=== PATIENT | female | born 1970 | race Caucasian/White ===

== ENCOUNTER 2017-09-21 15:14 | Emergency (ER) | payer OTHER ==
[2017-09-21 15:25] VITALS: BP 116/59; PULSE 76; RESP 16; TEMP 98.2
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
--- NOTE | 2017-09-21 16:13 | XR ---
EXAMINATION TYPE: XR foot complete LT DATE OF EXAM: 09/21/2017 COMPARISON: NONE HISTORY: Pain TECHNIQUE: Three views are submitted. FINDINGS: The osseous structures are intact. There is no acute fracture or dislocation. Very mild hypertroph ic change and narrowing the first MTP joint. Spurring of the calcaneus noted. IMPRESSION: 1. No acute fracture or dislocation. If symptoms persist, follow-up exam in 7 to 10 days could be ob tained.
== END 2017-09-21 16:44 | disposition home or self-care (01) ==
LOC: EC 15:14
DX: S90.32XA Contusion of left foot, initial encounter (principal); Z91.011 Allergy to milk products; Z91.012 Allergy to eggs; Z91.018 Allergy to other foods; W51.XXXA Accidental striking against or bumped into by another person, initial encounter
CPT/HCPCS: 99283

== ENCOUNTER 2017-10-20 16:57 | Emergency (ER) | payer OTHER ==
[2017-10-20 17:10] VITALS: TEMP 98.3
--- NOTE | 2017-10-20 17:31 | ED ---
General Adult HPI - General Chief complaint: Urogenital Stated complaint: POSS UTI Time Seen by Provider: 10/20/17 17:14 Source: patient, RN notes reviewed, old records reviewed Mode of arrival: ambulatory Limitations: no limitations - History of Present Illness Initial comments: 47-year-old female presents with 4 days of urinary frequency and urgency. She also reports worsening dysuria over this time. Denies fever or chills. She has had some nausea with no vomiting. No upper abdominal pain. No vaginal discharge or bleeding. No change to her bowels. No diarrhea. Patient has no chronic medical problems, not currently on any medication. - Related Data Home Medications Medication Instructions Recorded Confirmed Acetaminophen [Tylenol] 650 mg PO Q6H PRN 10/20/17 10/20/17 Ibuprofen [Motrin Ib] 400 mg PO Q6H PRN 10/20/17 10/20/17 Previous Rx's Medication Instructions Recorded Cephalexin [Keflex] 500 mg PO Q8HR #30 cap 10/20/17 Allergies Allergy/AdvReac Type Severity Reaction Status Date / Time good Allergy Anaphylaxis Verified 10/20/17 17:34 egg Allergy Nausea & Verified 10/20/17 17:34 Vomiting Milk Containing Products Allergy Nausea & Verified 10/20/17 17:34 [Dairy] Vomiting & Diarrhea Poultry Allergy Nausea & Verified 10/20/17 17:34 Vomiting walnut Allergy Anaphylaxis Verified 10/20/17 17:34 mina Allergy Nausea & Uncoded 10/20/17 17:10 Vomiting Review of Systems ROS Statement: Those systems with pertinent positive or pertinent negative responses have been documented in the HPI. ROS Other: All systems not noted in ROS Statement are negative. Past Medical History Past Medical History: No Reported History History of Any Multi-Drug Resistant Organisms: None Reported Past Surgical History: Section, Orthopedic Surgery Additional Past Surgical History / Comment(s): carpal tunnel, trigger finger Past Psychological History: No Psychological Hx Reported Smoking Status: Never smoker Past Alcohol Use History: Occasional Past Drug Use History: None Reported General Exam Limitations: no limitations General appearance: alert, in no apparent distress Head exam: Present: atraumatic, normocephalic Eye exam: Present: normal appearance, PERRL ENT exam: Present: normal exam Neck exam: Present: normal inspection. Absent: tenderness, meningismus Respiratory exam: Present: normal lung sounds bilaterally. Absent: respiratory distress, wheezes Cardiovascular Exam: Present: regular rate, normal rhythm GI/Abdominal exam: Present: soft. Absent: distended, tenderness Extremities exam: Present: normal inspection, normal capillary refill. Absent: pedal edema Neurological exam: Present: alert, oriented X3 Psychiatric exam: Present: normal affect, normal mood Skin exam: Present: warm, dry, intact Course Vital Signs 10/20/17 17:08 Temperature 98.3 F Pulse Rate 84 Respiratory 18 Rate Blood Pressure 105/62 O2 Sat by Pulse 97 Oximetry Medical Decision Making - Medical Decision Making 47-year-old female otherwise healthy presenting with dysuria, urinary frequency and urgency. Urinalysis shows 146 WBCs, and greater than 182 red cells. Patient does have a remote history of kidney stone. CT is obtained, negative for hydronephrosis or hydroureter, no stones seen in the ureters, there is one stone within the right kidney. There is also fat stranding around the bladder consistent with cystitis. This is likely hemorrhagic cystitis. Patient will be started on antibiotics empirically awaiting culture results. - Lab Data Lab Results 10/20/17 Range/Units 17:15 Urine Color Yellow Urine Appearance Cloudy H (Clear) Urine pH 6.0 (5.0-8.0) Ur Specific [place] 1.033 (1.001-1.035) Urine Protein 2+ H (Negative) Urine Glucose (UA) Trace H (Negative) Urine Ketones Trace H (Negative) Urine Blood Large H (Negative) Urine Nitrite Negative (Negative) Urine Bilirubin Negative (Negative) Urine Urobilinogen 3.0 (<2.0) mg/dL Ur Leukocyte Esterase Large H (Negative) Urine RBC >182 H (0-5) /hpf Urine WBC 146 H (0-5) /hpf Urine WBC Clumps Few H (None) /hpf Ur Squamous Epith Cells 18 H (0-4) /hpf Urine Mucus Many H (None) /hpf Disposition Clinical Impression: Urinary tract infection Disposition: HOME SELF-CARE Condition: Good Instructions: Urinary Tract Infection in Women (ED) Prescriptions: Cephalexin [Keflex] 500 mg PO Q8HR #30 cap Is patient prescribed a controlled substance at d/c from ED?: No Referrals: None,Stated [Primary Care Provider] - 1-2 days Candace Thompson MD [REFERRING] - 1-2 days Time of Disposition: 18:49
[2017-10-20 17:35] LABS: Appearance,Urine Cloudy (Clear); Bilirubin,Urine Negative (Negative); Blood,Urine Large (Negative); Color,Urine Yellow; Glucose,Urine (UA) Trace (Negative); Ketones,Urine Trace (Negative); Leukocyte Esterase,Urine Large (Negative); Mucus,Urine Many /hpf; Nitrite,Urine Negative (Negative); Protein,Urine 2+ (Negative); RBC,Urine >182 /hpf (0-5); Specific Gravity,Urine 1.033 (1.001-1.035); Squamous Epithelial Cell,Urine 18 /hpf (0-4); WBC,Urine 146 /hpf (0-5)
--- NOTE | 2017-10-20 18:36 | CT ---
EXAMINATION TYPE: CT abdomen pelvis wo con DATE OF EXAM: 10/20/2017 COMPARISON: None HISTORY: 47-year-old female Right sided pain with hematuria and pain with urination CT DLP: 501.7 mGycm. Automated exposure control for dose reduction was used. TECHNIQUE: Contiguous axial scanning of the abdomen and pelvis without IV contrast. Coronal and sagit jose antonio reconstructions performed. FINDINGS: Heart normal size without pericardial effusion. Lung bases clear without pleural effusion. Noncontrast appearance of the liver, gallbladder, adrenal glands, left kidney, spleen, and pancreas s hows no gross abnormal. Punctate 2 mm calculi within the right kidney. No hydronephrosis. No suspicious calcifications seen along the course of either ureter. No dilated small bowel, free fluid, or free air. The appendix cannot be discretely visualized. No secondary findings of acute appendicitis in the righ t lower quadrant. Moderate stool burden. No pericolonic inflammatory change. No mesenteric or retroperitoneal lymphadenopathy. Bladder not distended. There may be some mild fat stranding around the bladder. Retroverted uterus. M ultiple pelvic phleboliths on the left. Both ovaries are visualized. No abnormal fluid collection the pelvis or pelvic lymphadenopathy. Bones: No osseous destructive process. IMPRESSION: 1. Punctate 2 mm calculi within the right kidney. No hydronephrosis or suspicious calculus seen simi g either ureter. 2. There may be some mild fat stranding around the bladder. Correlate to exclude cystitis. 3. Moderate stool burden.
[2017-10-20] MEDS ORDERED: IBUPROFEN 600 MG TAB PO STA (18:53)
[2017-10-20 19:20] VITALS: BP 136/78; PULSE 68; RESP 16
[2017-10-20] MEDS ORDERED: CEPHALEXIN 500 MG CAP PO STA (19:24)
== END 2017-10-20 19:28 | disposition home or self-care (01) ==
LOC: EC 16:57
DX: N39.0 Urinary tract infection, site not specified (principal); Z87.442 Personal history of urinary calculi; Z91.011 Allergy to milk products; Z91.012 Allergy to eggs; Z91.018 Allergy to other foods; Z91.09 Other allergy status, other than to drugs and biological substances
CPT/HCPCS: 74176; 81001; 87077; 87086; 87186; 99284

== ENCOUNTER 2017-11-23 21:55 | Emergency (ER) | payer OTHER ==
[2017-11-23 22:00] VITALS: BP 126/77; PULSE 80; RESP 18; TEMP 98.5
--- NOTE | 2017-11-23 22:48 | ED ---
General Adult HPI - General Chief complaint: Skin/Abscess/Foreign Body Stated complaint: Rash Time Seen by Provider: 11/23/17 22:07 Source: patient, RN notes reviewed, old records reviewed Mode of arrival: ambulatory Limitations: no limitations - History of Present Illness Initial comments: 47 year old female presents with rash over L foot and ankle, that has spread up her leg, and has other areas over L axilla. Patietn reports she was exposed to [place]. Patient reports this rash has been there for one week after walking through back yard. She reports she has used calamine lotion with some relief. - Related Data Home Medications Medication Instructions Recorded Confirmed Acetaminophen [Tylenol] 650 mg PO Q6H PRN 10/20/17 10/20/17 Ibuprofen [Motrin Ib] 400 mg PO Q6H PRN 10/20/17 10/20/17 Previous Rx's Medication Instructions Recorded Cephalexin [Keflex] 500 mg PO Q8HR #30 cap 10/20/17 Ibuprofen [Motrin] 600 mg PO Q8HR PRN #24 tab 10/20/17 Permethrin 5% Cream [Elimite] 1 applic TOPICAL ONCE #60 cream..g. 11/23/17 hydrOXYzine HCL [Atarax] 25 mg PO QID PRN #20 tab 11/23/17 predniSONE 10 mg PO DAILY #30 tab 11/23/17 Allergies Allergy/AdvReac Type Severity Reaction Status Date / Time good Allergy Anaphylaxis Verified 10/20/17 17:34 egg Allergy Nausea & Verified 10/20/17 17:34 Vomiting Milk Containing Products Allergy Nausea & Verified 10/20/17 17:34 [Dairy] Vomiting & Diarrhea Poultry Allergy Nausea & Verified 10/20/17 17:34 Vomiting walnut Allergy Anaphylaxis Verified 10/20/17 17:34 mina Allergy Nausea & Uncoded 10/20/17 17:10 Vomiting Review of Systems ROS Statement: Those systems with pertinent positive or pertinent negative responses have been documented in the HPI. ROS Other: All systems not noted in ROS Statement are negative. Past Medical History Past Medical History: No Reported History History of Any Multi-Drug Resistant Organisms: None Reported Past Surgical History: Section, Orthopedic Surgery Additional Past Surgical History / Comment(s): carpal tunnel, trigger finger Past Psychological History: No Psychological Hx Reported Smoking Status: Never smoker Past Alcohol Use History: Occasional Past Drug Use History: Marijuana General Exam - General Exam Comments Initial Comments: This is a 47 year old female, no distress. Limitations: no limitations General appearance: alert, in no apparent distress Head exam: Present: atraumatic, normocephalic, normal inspection Eye exam: Present: normal appearance, PERRL, EOMI. Absent: scleral icterus, conjunctival injection, periorbital swelling ENT exam: Present: normal exam, mucous membranes moist Neck exam: Present: normal inspection. Absent: tenderness, meningismus, lymphadenopathy Respiratory exam: Present: normal lung sounds bilaterally. Absent: respiratory distress, wheezes, rales, rhonchi, stridor Cardiovascular Exam: Present: regular rate, normal rhythm, normal heart sounds. Absent: systolic murmur, diastolic murmur, rubs, gallop, clicks GI/Abdominal exam: Present: soft, normal bowel sounds. Absent: distended, tenderness, guarding, rebound, rigid Extremities exam: Present: normal inspection, full ROM, normal capillary refill , other (erythematous linear rash over left foot, ankle and leg. Rash has dried blisters and papules. ). Absent: tenderness, pedal edema, joint swelling, calf tenderness Back exam: Present: normal inspection Neurological exam: Present: alert, oriented X3, CN II-XII intact Psychiatric exam: Present: normal affect, normal mood Skin exam: Present: warm, dry, intact, normal color, rash (rash over left foot, ankle and axilla. ) Course Vital Signs 11/23/17 21:59 Temperature 98.5 F Pulse Rate 80 Respiratory 18 Rate Blood Pressure 126/77 O2 Sat by Pulse 98 Oximetry Medical Decision Making - Medical Decision Making 47 year old female with L foot ankle and axilla rash. Patient has erythematous linear blisters and papules. Rash appears similliar to [place] rash, but can appear similiar to scabies. Patient at this time has history consistent with [place] exposure. Will treat with PO steroids and steroid cream. Discussed using permethrin cream after steroids if symptoms persist. Patient agrees to treatment plan and will comply. Disposition Clinical Impression: [place] Disposition: HOME SELF-CARE Condition: Good Instructions: [place] (ED) Additional Instructions: Patient advised to follow-up with primary care physician. Return to the emergency department if any alarming signs or symptoms occur. Patient should be treated with permethrin cream if the steroids, Caladryl and Benadryl did not help with the itching. Prescriptions: hydrOXYzine HCL [Atarax] 25 mg PO QID PRN #20 tab PRN Reason: Itching Permethrin 5% Cream [Elimite] 1 applic TOPICAL ONCE #60 cream..g. predniSONE 10 mg PO DAILY #30 tab Is patient prescribed a controlled substance at d/c from ED?: No Referrals: None,Stated [Primary Care Provider] - 1-2 days Tsering Diaz MD [STAFF PHYSICIAN] - 1-2 days Time of Disposition: 22:44
== END 2017-11-23 23:05 | disposition home or self-care (01) ==
LOC: EC 21:55
DX: L23.7 Allergic contact dermatitis due to plants, except food (principal); Z98.890 Other specified postprocedural states; Z91.011 Allergy to milk products; Z91.012 Allergy to eggs; Z91.018 Allergy to other foods
CPT/HCPCS: 99283

== ENCOUNTER 2018-03-10 19:10 | Emergency (ER) | payer OTHER ==
[2018-03-10 19:45] VITALS: RESP 18
--- NOTE | 2018-03-10 20:34 | XR ---
EXAMINATION TYPE: XR lumbar spine 2 or 3V DATE OF EXAM: 03/10/2018 COMPARISON: NONE HISTORY: Low back pain TECHNIQUE: 3 views FINDINGS: Lumbar vertebra have normal spacing and alignment. Posterior elements are intact. Sacroilia c joints appear normal. IMPRESSION: Normal lumbar spine exam.
[2018-03-10] MEDS ORDERED: KETOROLAC 30 MG/ML 1 ML VIAL IM STA (20:59)
[2018-03-10] MEDS ORDERED: DIAZEPAM 5 MG/ML 2 ML INJ IM ONE (21:00)
[2018-03-10] MEDS ORDERED: CYCLOBENZAPRINE 10MG STARTER 3 TAB BTL PO STA (22:12)
[2018-03-10] MEDS ORDERED: ACET/COD 300 MG/30 MG STARTER PACK 6 TAB BTL PO STA (22:12)
--- NOTE | 2018-03-10 22:12 | ED ---
Back Pain HPI - General Chief Complaint: Back Pain/Injury Stated Complaint: lower back pain/fall Time Seen by Provider: 03/10/18 20:47 Source: patient Limitations: no limitations - History of Present Illness Initial Comments: 47-year-old female who denies past medical history presenting today for chief complaint of fall. Patient states that last night around 8 PM she was walking down her son's basement stairs when she slipped falling on her butt sliding down 5 stairs. Patient states that night she took a muscle relaxer that her son had as well as an ibuprofen 800. She states that the pain was worse this morning. Patient denies any loss of bowel bladder control loss sensation lower extremities, muscle weakness of the legs. Patient denies any vaginal numbness, or numbness to treat the legs. Patient states that the pain is worse with any type of movement. Patient is able to ambulate. Patient denies hitting her head , loss of consciousness, or injury to any other extremity. Patient denies abrasion or lacerations. Patient denies chest pain, dizziness, shortness of breath, headache or weakness or any other symptoms prior to falling. She states it was mechanical. Upon arrival patient's bowel signs neck supple limits. Patient appears well but uncomfortable. Vital signs within acceptable limits. - Related Data Home Medications Medication Instructions Recorded Confirmed Acetaminophen [Tylenol] 650 mg PO Q6H PRN 10/20/17 10/20/17 Ibuprofen [Motrin Ib] 400 mg PO Q6H PRN 10/20/17 10/20/17 Previous Rx's Medication Instructions Recorded Cephalexin [Keflex] 500 mg PO Q8HR #30 cap 10/20/17 Ibuprofen [Motrin] 600 mg PO Q8HR PRN #24 tab 10/20/17 Permethrin 5% Cream [Elimite] 1 applic TOPICAL ONCE #60 cream..g. 11/23/17 hydrOXYzine HCL [Atarax] 25 mg PO QID PRN #20 tab 11/23/17 predniSONE 10 mg PO DAILY #30 tab 11/23/17 Acetaminophen with Codeine 1 tab PO Q6H PRN 3 Days #12 tab 03/10/18 [Tylenol w/codeine #3] predniSONE 20 mg PO DAILY 4 Days #4 tab 03/10/18 Allergies Allergy/AdvReac Type Severity Reaction Status Date / Time good Allergy Anaphylaxis Verified 03/10/18 19:44 egg Allergy Nausea & Verified 03/10/18 19:44 Vomiting Milk Containing Products Allergy Nausea & Verified 03/10/18 19:44 [Dairy] Vomiting & Diarrhea Poultry Allergy Nausea & Verified 03/10/18 19:44 Vomiting walnut Allergy Anaphylaxis Verified 03/10/18 19:44 mina Allergy Nausea & Uncoded 03/10/18 19:44 Vomiting Review of Systems ROS Statement: Those systems with pertinent positive or pertinent negative responses have been documented in the HPI. ROS Other: All systems not noted in ROS Statement are negative. Constitutional: Denies: fever, chills Eyes: Denies: eye pain ENT: Denies: ear pain, throat pain, dental pain, hearing loss Respiratory: Denies: cough, dyspnea, wheezes, hemoptysis, stridor Cardiovascular: Denies: chest pain, palpitations Endocrine: Denies: fatigue Gastrointestinal: Denies: abdominal pain, nausea, vomiting, diarrhea, constipation, hematemesis, melena Genitourinary: Denies: urgency, dysuria Musculoskeletal: Reports: back pain, myalgia (Low back muscles). Denies: joint swelling, arthralgia Skin: Denies: rash, lesions Past Medical History Past Medical History: No Reported History History of Any Multi-Drug Resistant Organisms: None Reported Past Surgical History: Section, Orthopedic Surgery Additional Past Surgical History / Comment(s): carpal tunnel, trigger finger Past Psychological History: No Psychological Hx Reported Smoking Status: Never smoker Past Alcohol Use History: Occasional Past Drug Use History: Marijuana General Exam - General Exam Comments Initial Comments: General: The patient is awake and alert, in no distress, and does not appear acutely ill. Eye: Pupils are equal, round and reactive to light, extra-ocular movements are intact. No nystagmus. There is normal conjunctiva bilaterally. No signs of icterus. Ears, nose, mouth and throat: There are moist mucous membranes and no oral lesions. Neck: The neck is supple, there is no tenderness or JVD. Cardiovascular: There is a regular rate and rhythm. No murmur, rub or gallop is appreciated. Respiratory: Lungs are clear to auscultation, respirations are non-labored, breath sounds are equal. No wheezes, stridor, rales, or rhonchi. Gastrointestinal: Soft, non-distended, non-tender abdomen without masses or organomegaly noted. There is no rebound or guarding present. Musculoskeletal: Upon inspection of the lumbar spine there is no ecchymosis, abrasions or lacerations. Patient is tender to the patient midline of the lumbar spine. She also has noted paravertebral muscle tension and spasm. Of the lumbar spine. Patient has 5/5 strength of the lower extremities equally bilaterally. Patient has full sensation of the lower extremities equally bilaterally. There is no saddle numbness. DP pulses equal bilaterally 2+. No evidence of foot drop, clonus fasciculations. Deep tendon reflexes +2/5 of the lower extremities. No pain to palpation of the cervical spine. Neurological: A&O x 3. CN II-XII intact, There are no obvious motor or sensory deficits. Coordination appears grossly intact. Speech is normal. Skin: Skin is warm and dry and no rashes or lesions are noted. Psychiatric: Cooperative, appropriate mood & affect, normal judgment. Limitations: no limitations Course Vital Signs 03/10/18 03/10/18 19:42 22:33 Temperature 98.4 F 98.3 F Pulse Rate 87 98 Respiratory 18 18 Rate Blood Pressure 117/76 138/74 O2 Sat by Pulse 98 99 Oximetry Medical Decision Making - Medical Decision Making Patient given Toradol and Valium for pain and muscle spasm. Patient states that this improved symptoms. Radiographic imaging negative for acute process or fracture. At this time feel patient is stable for discharge for treatment of low back pain with muscle relaxant Flexeril and pain medication Tylenol No. 3. Use the medication as discussed at length the patient who verbalized understanding. Opioids are talking consent form was discussed at length patient verbalized understanding. Case discussed with Dr. Abdalla who agreed impression and plan. I urged patient to follow up with with orthopedic surgery in the next 1-2 days. Patient verbalized understanding. In addition I instructed patient to use ice and heat of the lumbar spine 20 minutes 3 times a day. Patient verbalized understanding of plan. Patient denies questions at this time. Return parameters were discussed at length the patient including signs of cauda equina. Patient states she went to return for any worsening or any other symptoms discussed. At this time feel patient is stable for discharge. Patient discharged in stable condition with right home, son in room. Patient ambulatory upon leaving emergency department. Disposition Clinical Impression: Low back pain, Low back strain, Lower back injury, Fall Disposition: HOME SELF-CARE Condition: Good Instructions: Acute Low Back Pain (ED) Additional Instructions: Please use medication as discussed. Please follow-up with family doctor in the next 2 days, please follow-up with orthopedic surgery as discussed. Please return to emergency room if the symptoms increase or worsen or for any other concerns, loss of bowel bladder control, urine retention, numbness between legs , or muscle weakness. Prescriptions: Acetaminophen with Codeine [Tylenol w/codeine #3] 1 tab PO Q6H PRN 3 Days #12 tab PRN Reason: severe pain predniSONE 20 mg PO DAILY 4 Days #4 tab Is patient prescribed a controlled substance at d/c from ED?: Yes When asked, does pt state using other controlled substances?: No If prescribed controlled substance>3 days was MAPS reviewed?: Prescribed <3 Days If opioid is for acute pain is fill amount 7 days or less?: Yes If Rx opioid, was Start Talking consent form obtained?: Yes Referrals: Ga Barragan MD [Primary Care Provider] - 1-2 days Gordo Dawson MD [STAFF PHYSICIAN] - 1-2 days Time of Disposition: 22:12
[2018-03-10 22:34] VITALS: BP 138/74; PULSE 98; TEMP 98.3
== END 2018-03-10 22:34 | disposition home or self-care (01) ==
LOC: EC 19:10
DX: S39.012A Strain of muscle, fascia and tendon of lower back, initial encounter (principal); Z91.012 Allergy to eggs; Z91.018 Allergy to other foods; Z91.011 Allergy to milk products; W10.9XXA Fall (on) (from) unspecified stairs and steps, initial encounter; Y93.01 Activity, walking, marching and hiking; Y92.008 Other place in unspecified non-institutional (private) residence as the place of occurrence of the external cause
CPT/HCPCS: 72100; 99283; 96372 ×2; J3360; J1885

== ENCOUNTER 2018-05-30 14:35 | Emergency (ER) | payer OTHER ==
[2018-05-30 14:48] VITALS: BP 120/74; PULSE 78; RESP 20; TEMP 98.5
[2018-05-30] MEDS ORDERED: ACETAMINOPHEN TAB 500 MG TAB PO STA (15:32)
[2018-05-30] MEDS ORDERED: CYCLOBENZAPRINE 5 MG TAB PO STA (15:33)
--- NOTE | 2018-05-30 15:36 | ED ---
General Adult HPI - General Chief complaint: Fall Stated complaint: Fall on ice, back pain Source: patient, family, RN notes reviewed Mode of arrival: ambulatory Limitations: no limitations - History of Present Illness Initial comments: Patient is a 47-year-old female who presents the emergency department with her with complaint of slip and fall on the ice that happened at about 6:30 AM today. She reports that she fell onto her bottom and that her tailbone and left lower back hurts. Denies any other injury. Denies head injury, loss of consciousness, neck pain, bowel or bladder incontinence, or saddle anesthesia. She reports taking 600 mg of ibuprofen at 11 AM. Patient denies any recent fever , chills, shortness of breath, chest pain, abdominal pain, nausea or vomiting, numbness or tingling, headaches or visual changes, or any other complaints. - Related Data Home Medications Medication Instructions Recorded Confirmed Acetaminophen [Tylenol] 650 mg PO Q6H PRN 10/20/17 10/20/17 Ibuprofen [Motrin Ib] 400 mg PO Q6H PRN 10/20/17 10/20/17 Previous Rx's Medication Instructions Recorded Cephalexin [Keflex] 500 mg PO Q8HR #30 cap 10/20/17 Ibuprofen [Motrin] 600 mg PO Q8HR PRN #24 tab 10/20/17 Permethrin 5% Cream [Elimite] 1 applic TOPICAL ONCE #60 cream..g. 11/23/17 hydrOXYzine HCL [Atarax] 25 mg PO QID PRN #20 tab 11/23/17 predniSONE 10 mg PO DAILY #30 tab 11/23/17 Acetaminophen with Codeine 1 tab PO Q6H PRN 3 Days #12 tab 03/10/18 [Tylenol w/codeine #3] predniSONE 20 mg PO DAILY 4 Days #4 tab 03/10/18 Allergies Allergy/AdvReac Type Severity Reaction Status Date / Time good Allergy Anaphylaxis Verified 05/30/18 14:48 egg Allergy Nausea & Verified 05/30/18 14:48 Vomiting Milk Containing Products Allergy Nausea & Verified 05/30/18 14:48 [Dairy] Vomiting & Diarrhea Poultry Allergy Nausea & Verified 05/30/18 14:48 Vomiting walnut Allergy Anaphylaxis Verified 05/30/18 14:48 mina Allergy Nausea & Uncoded 05/30/18 14:48 Vomiting Review of Systems ROS Statement: Those systems with pertinent positive or pertinent negative responses have been documented in the HPI. ROS Other: All systems not noted in ROS Statement are negative. Past Medical History Past Medical History: No Reported History History of Any Multi-Drug Resistant Organisms: None Reported Past Surgical History: Section, Orthopedic Surgery Additional Past Surgical History / Comment(s): carpal tunnel, trigger finger Past Psychological History: No Psychological Hx Reported Smoking Status: Never smoker Past Alcohol Use History: Occasional Past Drug Use History: Marijuana General Exam Limitations: no limitations General appearance: alert, in no apparent distress Head exam: Present: atraumatic, normocephalic Eye exam: Present: normal appearance Respiratory exam: Present: normal lung sounds bilaterally. Absent: wheezes, rales, rhonchi Cardiovascular Exam: Present: regular rate, normal rhythm Back exam: Present: normal inspection, tenderness (Left sided lumbar area tenderness. No midline tenderness.) Neurological exam: Present: alert, oriented X3 Skin exam: Present: warm, dry Course Vital Signs 05/30/18 14:46 Temperature 98.5 F Pulse Rate 78 Respiratory 20 Rate Blood Pressure 120/74 O2 Sat by Pulse 99 Oximetry Medical Decision Making - Medical Decision Making Patient given Tylenol and Flexeril here. X-ray of the lumbar spine reveals mild disc space narrowing posteriorly at L5-S1, but is otherwise negative. Sacrum and coccyx x-ray is negative. Case discussed in detail with attending physician Dr. Marin. Disposition Clinical Impression: Fall Disposition: HOME SELF-CARE Condition: Good Instructions (If sedation given, give patient instructions): Contusion in Adults (ED) Additional Instructions: Follow-up with your PCP in 1 to 2 days. Use [id number] pain medicine as needed. Return to the emergency department if your symptoms worsen or other concerns. Is patient prescribed a controlled substance at d/c from ED?: No Referrals: Ga Barragan MD [Primary Care Provider] - 1-2 days Time of Disposition: 16:54
--- NOTE | 2018-05-30 15:59 | XR ---
EXAMINATION TYPE: XR sacrum coccyx DATE OF EXAM: 05/30/2018 COMPARISON: None HISTORY: Pain, fall TECHNIQUE: Three-view sacrum and coccyx. FINDINGS: No acute fractures are evident. Sacroiliac joints appear normal as visualized. Normal bowel gas present. IMPRESSION: 1. No acute osseous abnormality cervical spine coccyx.
--- NOTE | 2018-05-30 16:00 | XR ---
EXAMINATION TYPE: XR lumbar spine 2 or 3V DATE OF EXAM: 05/30/2018 COMPARISON: 03/10/2018 HISTORY: Fall on ice, pain TECHNIQUE: Three-view lumbar spine FINDINGS: Some posterior disc space narrowing at L5-S1 is present. There 5 lumbar-type vertebral bodi es. The pedicles are intact. Disc heights are otherwise preserved. Vertebral body heights are preserv ed. Exam is stable. IMPRESSION: 1. Mild disc space narrowing posteriorly at L5-S1. 2. Lumbar spine is otherwise unremarkable.
== END 2018-05-30 17:06 | disposition home or self-care (01) ==
LOC: EC 14:35
DX: M48.07 Spinal stenosis, lumbosacral region (principal); Z91.018 Allergy to other foods; Z91.012 Allergy to eggs; Z91.011 Allergy to milk products; W00.0XXA Fall on same level due to ice and snow, initial encounter; Y92.009 Unspecified place in unspecified non-institutional (private) residence as the place of occurrence of the external cause
CPT/HCPCS: 72100; 72220; 99283

== ENCOUNTER → 2018-06-30 | Outpatient (CLI) | payer OTHER ==
[2018-06-30 16:01] LABS: Anion Gap 4.3 mmol/L (4.00-12.00); Carbon Dioxide 27.7 mmol/L (21.6-31.8); Potassium 4.4 mmol/L (3.5-5.5)
== END | disposition home or self-care (01) ==
LOC: LABWHC1 09:18
PROVIDERS: ATTEND Nurse Practitioner Family
DX: Z13.220 Encounter for screening for lipoid disorders (principal); Z13.1 Encounter for screening for diabetes mellitus
CPT/HCPCS: 36415; 80048; 80061

== ENCOUNTER 2018-08-06 16:13 | Emergency (ER) | payer OTHER ==
[2018-08-06 16:40] VITALS: TEMP 98.1
[2018-08-06] MEDS ORDERED: MECLIZINE 12.5 MG TAB PO STA (17:28)
[2018-08-06] MEDS ORDERED: diphenhydrAMINE 50 MG/ML 1 ML VIAL IVP STA (17:28)
[2018-08-06] MEDS ORDERED: SODIUM CHLORIDE 0.9% 1,000 ML IV STA ×2 (17:28)
[2018-08-06] MEDS ORDERED: METOCLOPRAMIDE 5 MG/ML 2 ML VIAL IVP STA (17:30)
--- NOTE | 2018-08-06 17:53 | ED ---
Syncope HPI - General Chief Complaint: Dizziness Stated Complaint: Dizzy Time Seen by Provider: 08/06/18 16:49 Source: patient, RN notes reviewed, old records reviewed Mode of arrival: ambulatory Limitations: no limitations - History of Present Illness Initial Comments: 48-year-old female presents to emergency room complaints of dizziness. She feels like the room spinning. Symptoms started over the weekend. Patient states that she's had a history of vertigo the past. Last episode was a few years ago. Patient denies any chest pain or shortness of breath. She denies a significant headache. She is complaining some sinus congestion tenderness. Patient states that she's had some vomiting episodes related to this. Patient denies any recent fever, chills, shortness of breath, chest pain, back pain, abdominal pain, nausea vomiting, numbness or tingling, dysuria or hematuria, constipation or diarrhea, headaches or visual changes, or any other current symptoms - Related Data Home Medications Medication Instructions Recorded Confirmed Meclizine [Antivert] 25 mg PO DAILY 08/06/18 08/06/18 Previous Rx's Medication Instructions Recorded Meclizine HCl 25 mg PO TID #20 tablet 08/06/18 Metoclopramide HCl [Reglan] 10 mg PO TID #10 tablet 08/06/18 methylPREDNISolone Dose Pack 4 mg PO DIRECTED #21 package 08/06/18 [Medrol Dose Pack] Allergies Allergy/AdvReac Type Severity Reaction Status Date / Time good Allergy Anaphylaxis Verified 08/06/18 17:54 egg Allergy Nausea & Verified 08/06/18 17:54 Vomiting Milk Containing Products Allergy Nausea & Verified 08/06/18 17:54 [Dairy] Vomiting & Diarrhea Poultry Allergy Nausea & Verified 08/06/18 17:54 Vomiting walnut Allergy Anaphylaxis Verified 08/06/18 17:54 mina Allergy Nausea & Uncoded 08/06/18 16:40 Vomiting Review of Systems ROS Statement: Those systems with pertinent positive or pertinent negative responses have been documented in the HPI. ROS Other: All systems not noted in ROS Statement are negative. Past Medical History Past Medical History: No Reported History Additional Past Medical History / Comment(s): vertigo History of Any Multi-Drug Resistant Organisms: None Reported Past Surgical History: Section, Orthopedic Surgery Additional Past Surgical History / Comment(s): carpal tunnel, trigger finger Past Psychological History: No Psychological Hx Reported Smoking Status: Never smoker Past Alcohol Use History: Occasional Past Drug Use History: Marijuana General Exam - General Exam Comments Initial Comments: 48-year-old female presents emergency department today complaining of dizziness. Alert and oriented 3. No distress. Limitations: no limitations General appearance: alert, in no apparent distress Head exam: Present: atraumatic, normocephalic, normal inspection Eye exam: Present: normal appearance, PERRL, EOMI, nystagmus (Patient has nystagmus on left lateral gaze.). Absent: scleral icterus, conjunctival injecti on, periorbital swelling ENT exam: Present: normal exam, mucous membranes moist Neck exam: Present: normal inspection. Absent: tenderness, meningismus, lymphadenopathy Respiratory exam: Present: normal lung sounds bilaterally. Absent: respiratory distress, wheezes, rales, rhonchi, stridor Cardiovascular Exam: Present: regular rate, normal rhythm, normal heart sounds. Absent: systolic murmur, diastolic murmur, rubs, gallop, clicks GI/Abdominal exam: Present: soft Extremities exam: Present: normal inspection, full ROM, normal capillary refill. Absent: tenderness, pedal edema, joint swelling, calf tenderness Back exam: Present: normal inspection Neurological exam: Present: alert, oriented X3, CN II-XII intact Psychiatric exam: Present: normal affect, normal mood Skin exam: Present: warm, dry, intact, normal color. Absent: rash Course Vital Signs 08/06/18 08/06/18 16:39 17:26 Temperature 98.1 F Pulse Rate 77 Pulse Rate [ 76 Sitting] Pulse Rate [ 84 Standing] Pulse Rate [ 78 Supine] Respiratory 18 22 Rate Blood Pressure 118/56 Blood Pressure 158/91 [Sitting] Blood Pressure 164/94 [Standing] Blood Pressure 139/75 [Supine] O2 Sat by Pulse 97 Oximetry Medical Decision Making - Medical Decision Making 48-year-old female presented to return to vertigo like symptoms dizziness. Symptoms started 3 days ago. Patient arrives in moderate discomfort and dizziness. Patient is given IV fluids Reglan Benadryl meclizine. After reevaluation she is feeling much better not as dizzy or nauseated. Patient will be started on regimen of meclizine, Reglan and Benadryl for discharge home. She is also evidence of ear effusion. Discussed using steroids as well as helping for the inflammation. All questions answered return parameters were discussed. - Lab Data Result diagrams: 08/06/18 18:10 08/06/18 18:10 Lab Results 08/06/18 08/06/18 08/06/18 Range/Units 18:10 18:10 18:10 WBC 9.9 (3.8-10.6) k/uL RBC 5.12 (3.80-5.40) m/uL Hgb 13.8 (11.4-16.0) gm/dL Hct 42.7 (34.0-46.0) % MCV 83.3 (80.0-100.0) fL MCH 27.0 (25.0-35.0) pg MCHC 32.4 (31.0-37.0) g/dL RDW 14.4 (11.5-15.5) % Plt Count 312 (150-450) k/uL Neutrophils % 66 % Lymphocytes % 21 % Monocytes % 6 % Eosinophils % 5 % Basophils % 1 % Neutrophils # 6.5 (1.3-7.7) k/uL Lymphocytes # 2.1 (1.0-4.8) k/uL Monocytes # 0.6 (0-1.0) k/uL Eosinophils # 0.5 (0-0.7) k/uL Basophils # 0.1 (0-0.2) k/uL PT 10.0 (9.0-12.0) sec INR 0.9 (<1.2) Sodium 140 (137-145) mmol/L Potassium 3.8 (3.5-5.1) mmol/L Chloride 106 (98-107) mmol/L Carbon Dioxide 26 (22-30) mmol/L Anion Gap 8 mmol/L BUN 12 (7-17) mg/dL Creatinine 0.61 (0.52-1.04) mg/dL Est GFR (CKD-EPI)AfAm >90 (>60 ml/min/1.73 sqM) Est GFR (CKD-EPI)NonAf >90 (>60 ml/min/1.73 sqM) Glucose 94 (74-99) mg/dL Calcium 9.7 (8.4-10.2) mg/dL Total Bilirubin 0.2 (0.2-1.3) mg/dL AST 15 (14-36) U/L ALT 27 (9-52) U/L Alkaline Phosphatase 57 (38-126) U/L Troponin I (0.000-0.034) ng/mL Total Protein 6.7 (6.3-8.2) g/dL Albumin 4.1 (3.5-5.0) g/dL Urine Color Urine Appearance (Clear) Urine pH (5.0-8.0) Ur Specific [place] (1.001-1.035) Urine Protein (Negative) Urine Glucose (UA) (Negative) Urine Ketones (Negative) Urine Blood (Negative) Urine Nitrite (Negative) Urine Bilirubin (Negative) Urine Urobilinogen (<2.0) mg/dL Ur Leukocyte Esterase (Negative) 08/06/18 08/06/18 Range/Units 18:10 18:10 WBC (3.8-10.6) k/uL RBC (3.80-5.40) m/uL Hgb (11.4-16.0) gm/dL Hct (34.0-46.0) % MCV (80.0-100.0) fL MCH (25.0-35.0) pg MCHC (31.0-37.0) g/dL RDW (11.5-15.5) % Plt Count (150-450) k/uL Neutrophils % % Lymphocytes % % Monocytes % % Eosinophils % % Basophils % % Neutrophils # (1.3-7.7) k/uL Lymphocytes # (1.0-4.8) k/uL Monocytes # (0-1.0) k/uL Eosinophils # (0-0.7) k/uL Basophils # (0-0.2) k/uL PT (9.0-12.0) sec INR (<1.2) Sodium (137-145) mmol/L Potassium (3.5-5.1) mmol/L Chloride (98-107) mmol/L Carbon Dioxide (22-30) mmol/L Anion Gap mmol/L BUN (7-17) mg/dL Creatinine (0.52-1.04) mg/dL Est GFR (CKD-EPI)AfAm (>60 ml/min/1.73 sqM) Est GFR (CKD-EPI)NonAf (>60 ml/min/1.73 sqM) Glucose (74-99) mg/dL Calcium (8.4-10.2) mg/dL Total Bilirubin (0.2-1.3) mg/dL AST (14-36) U/L ALT (9-52) U/L Alkaline Phosphatase (38-126) U/L Troponin I <0.012 (0.000-0.034) ng/mL Total Protein (6.3-8.2) g/dL Albumin (3.5-5.0) g/dL Urine Color Light Yellow Urine Appearance Clear (Clear) Urine pH 7.0 (5.0-8.0) Ur Specific [place] 1.005 (1.001-1.035) Urine Protein Negative (Negative) Urine Glucose (UA) Negative (Negative) Urine Ketones Negative (Negative) Urine Blood Negative (Negative) Urine Nitrite Negative (Negative) Urine Bilirubin Negative (Negative) Urine Urobilinogen <2.0 (<2.0) mg/dL Ur Leukocyte Esterase Negative (Negative) 08/06/18 17:53 EKG performed shows normal sinus rhythm normal EKG. Ventricular rate of 76 bpm. Intervals 118 ms. QRS ration 108 ms. QT QTc is 386/434 ms. - Radiology Data Radiology results: report reviewed Normal chest x-ray. Disposition Clinical Impression: Vertigo Disposition: HOME SELF-CARE Condition: Good Instructions (If sedation given, give patient instructions): Vertigo (ED) Additional Instructions: Follow-up with primary care doctor. Take medication and return to ED if any alarming signs or symptoms. Prescriptions: Meclizine HCl 25 mg PO TID #20 tablet methylPREDNISolone Dose Pack [Medrol Dose Pack] 4 mg PO DIRECTED #21 package Metoclopramide HCl [Reglan] 10 mg PO TID #10 tablet Is patient prescribed a controlled substance at d/c from ED?: No Referrals: Ga Barragan MD [Primary Care Provider] - 1-2 days Time of Disposition: 19:16
[2018-08-06 18:19] LABS: Basophils # (A) 0.1 k/uL (0-0.2); Basophils % (A) 1 %; Eosinophils # (A) 0.5 k/uL (0-0.7); Eosinophils % (A) 5 %; HCT 42.7 % (34.0-46.0); HGB 13.8 gm/dL (11.4-16.0); Lymphocytes # (A) 2.1 k/uL (1.0-4.8); Lymphocytes % (A) 21 %; MCHC 32.4 g/dL (31.0-37.0); MCV 83.3 fL (80.0-100.0); Mean Platelet Volume 7.6; Monocytes # (A) 0.6 k/uL (0-1.0); Monocytes % (A) 6 %; Neutrophils # (A) 6.5 k/uL (1.3-7.7); Neutrophils % (A) 66 %; Platelet Count 312 k/uL (150-450); RBC 5.12 m/uL (3.80-5.40); RDW 14.4 % (11.5-15.5); WBC 9.9 k/uL (3.8-10.6)
[2018-08-06 18:24] LABS: INR 0.9 (<1.2)
[2018-08-06 18:26] LABS: Appearance,Urine Clear (Clear); Bilirubin,Urine Negative (Negative); Blood,Urine Negative (Negative); Color,Urine Light Yellow; Glucose,Urine (UA) Negative (Negative); Ketones,Urine Negative (Negative); Leukocyte Esterase,Urine Negative (Negative); Nitrite,Urine Negative (Negative); Protein,Urine Negative (Negative); Specific Gravity,Urine 1.005 (1.001-1.035); Urobilinogen,Urine <2.0 mg/dL (<2.0)
[2018-08-06 18:28] LABS: ALT 27 U/L (9-52); AST 15 U/L (14-36); Albumin 4.1 g/dL (3.5-5.0); Alkaline Phosphatase 57 U/L (38-126); Anion Gap 8 mmol/L; Blood Urea Nitrogen 12 mg/dL (7-17); Calcium 9.7 mg/dL (8.4-10.2); Carbon Dioxide 26 mmol/L (22-30); Chloride 106 mmol/L (98-107); Glucose 94 mg/dL (74-99); Potassium 3.8 mmol/L (3.5-5.1); Sodium 140 mmol/L (137-145); Total Bilirubin 0.2 mg/dL (0.2-1.3); Total Protein 6.7 g/dL (6.3-8.2)
--- NOTE | 2018-08-06 19:05 | XR ---
EXAMINATION TYPE: XR chest 2V DATE OF EXAM: 08/06/2018 COMPARISON: NONE HISTORY: Dizziness TECHNIQUE: Frontal and lateral views of the chest are obtained. FINDINGS: Heart and mediastinum are normal. Lungs are clear. Diaphragm is normal. There are chest le ads. Bony thorax is intact. IMPRESSION: Normal chest.
[2018-08-06] MEDS ORDERED: ONDANSETRON 4 MG ODT STARTER PACK 2 TAB BTL PO STA (19:19)
[2018-08-06 19:47] VITALS: BP 146/83; PULSE 82; RESP 18
== END 2018-08-06 19:47 | disposition home or self-care (01) ==
LOC: SUPCPDRO 16:13 → EC 16:13
DX: R42 Dizziness and giddiness (principal); R09.89 Other specified symptoms and signs involving the circulatory and respiratory systems; R11.10 Vomiting, unspecified; Z79.899 Other long term (current) drug therapy; Z91.018 Allergy to other foods; Z91.012 Allergy to eggs; Z91.011 Allergy to milk products
CPT/HCPCS: 36415; 93005; 80053; 84484; 85025; 85610; 81003; 71046; 99284; 96374; 96375; 96361; J1200; J2765; S0119

== ENCOUNTER 2019-06-22 17:13 | Emergency (ER) | payer OTHER ==
[2019-06-22 17:27] VITALS: TEMP 98.2
[2019-06-22] MEDS ORDERED: MORPHINE SULFATE 4 MG/ML SYRINGE IM STA (18:01)
[2019-06-22] MEDS ORDERED: ONDANSETRON ODT 4 MG TAB PO STA (18:01)
--- NOTE | 2019-06-22 18:05 | ED ---
Fall HPI <Michi Dennison - Last Filed: 06/22/19 21:27> - General Source: patient Mode of arrival: ambulatory <Natasha Acosta - Last Filed: 06/22/19 21:37> - General Chief Complaint: Fall Stated Complaint: fell down 6 steps/neck & shoulder pain Time Seen by Provider: 06/22/19 17:38 - History of Present Illness Initial Comments: 49-year-old female patient presents to the emergency department today for evaluation after experiencing a fall. Patient states this morning she was going down the stairs to laundry basket when she tripped over a rug and fell landing on her buttocks and sliding down about 6 steps. Patient states since and she's been having significant pain to the neck, right shoulder area. Patient states the pain significant worsens with any movement. She is reporting tingling to the right hand and arm. Patient states that the pain in her neck is causing her to have a headache. She does not recall hitting her head. She did not lose consciousness. She denies any blurred or double vision. Denies nausea or vomiting. States that she is having some pain in her low back over the "tailbone". Denies any pain radiation down her legs. Denies numbness or tingling to the lower extremities. Denies loss of bowel or bladder control or saddle anesthesia. Did not take any blood thinning medications. She did take his 800 mg ibuprofen early this morning after the incident. Patient denies any chest pain, shortness of breath, dizziness, weakness, abdominal pain, or difficulties with bowel movements or urination. (Natasha Acosta) - Related Data Home Medications Medication Instructions Recorded Confirmed Meclizine [Antivert] 25 mg PO DAILY 08/06/18 08/06/18 Previous Rx's Medication Instructions Recorded Meclizine HCl 25 mg PO TID #20 tablet 08/06/18 Metoclopramide HCl [Reglan] 10 mg PO TID #10 tablet 08/06/18 methylPREDNISolone Dose Pack 4 mg PO DIRECTED #21 package 08/06/18 [Medrol Dose Pack] Allergies Allergy/AdvReac Type Severity Reaction Status Date / Time good Allergy Anaphylaxis Verified 08/06/18 17:54 egg Allergy Nausea & Verified 08/06/18 17:54 Vomiting Milk Containing Products Allergy Nausea & Verified 08/06/18 17:54 [Dairy] Vomiting & Diarrhea Poultry Allergy Nausea & Verified 08/06/18 17:54 Vomiting walnut Allergy Anaphylaxis Verified 08/06/18 17:54 mina Allergy Nausea & Uncoded 08/06/18 16:40 Vomiting Review of Systems ROS Other: All systems not noted in ROS Statement are negative. <Michi Dennison Suresh - Last Filed: 06/22/19 21:27> ROS Other: All systems not noted in ROS Statement are negative. <Natasha Acosta - Last Filed: 06/22/19 21:37> ROS Statement: Those systems with pertinent positive or pertinent negative responses have been documented in the HPI. Past Medical History Past Medical History: No Reported History Additional Past Medical History / Comment(s): vertigo History of Any Multi-Drug Resistant Organisms: None Reported Past Surgical History: Section, Orthopedic Surgery Additional Past Surgical History / Comment(s): carpal tunnel, trigger finger Past Psychological History: No Psychological Hx Reported Smoking Status: Never smoker Past Alcohol Use History: Occasional Past Drug Use History: Marijuana <Natasha Acosta - Last Filed: 06/22/19 21:37> General Exam Limitations: no limitations General appearance: alert, in no apparent distress, other (This is a well- developed, well-nourished adult female patient in no acute distress. Vital signs upon presentation are temperature 98.2F, pulse 64, respirations 18, blood pressure 142/82, pulse ox 100% on room air.) Eye exam: Present: normal appearance, PERRL, EOMI. Absent: scleral icterus, conjunctival injection, periorbital swelling ENT exam: Present: normal exam, normal oropharynx, mucous membranes moist Neck exam: Present: normal inspection, tenderness (Tenderness over C4-C5.), full ROM (C-collar in place), other (No bony step off or deformity noted to midline palpation of the cervical spine). Absent: meningismus, lymphadenopathy Respiratory exam: Present: normal lung sounds bilaterally. Absent: respiratory distress, wheezes, rales, rhonchi, stridor Cardiovascular Exam: Present: regular rate, normal rhythm, normal heart sounds. Absent: systolic murmur, diastolic murmur, rubs, gallop, clicks GI/Abdominal exam: Present: soft, normal bowel sounds. Absent: distended, tenderness, guarding, rebound, rigid Back exam: Present: normal inspection, vertebral tenderness (sacral) Neurological exam: Present: alert, oriented X3, CN II-XII intact Psychiatric exam: Present: normal affect, normal mood Skin exam: Present: warm, dry, intact, normal color. Absent: rash <Natasha Acosta - Last Filed: 06/22/19 21:37> Course <Michi Dennison - Last Filed: 06/22/19 21:27> <Natasha Acosta - Last Filed: 06/22/19 21:37> Vital Signs 06/22/19 06/22/19 06/22/19 17:22 18:27 19:29 Temperature 98.2 F Pulse Rate 64 114 H 82 Respiratory 18 16 18 Rate Blood Pressure 142/82 189/105 150/84 O2 Sat by Pulse 100 94 L 97 Oximetry 06/22/19 20:40 Temperature Pulse Rate 73 Respiratory 16 Rate Blood Pressure 128/77 O2 Sat by Pulse 98 Oximetry - Reevaluation(s) Reevaluation #1: 06/22/19 19:27 [facility] has been contacted for transfer. They are requesting the speak with the neuro-interventionalist prior to speaking to the transfer team. They are being paged. 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 Patient's blood pressure and heart rate did become elevated, we'll administer labetalol and ativan. (Natasha Acosta) Reevaluation #2: 06/22/19 21:06 Patient resting comfortably in bed. We are still awaiting radiology impression on her CT angiography. We'll continue to monitor. (Natasha Acosta) Reevaluation #3: 06/22/192004 Case discussed with the stroke neurologist Dr. Tobin, regarding concern for left frontal subarachnoid hemorrhage measuring [address] without contrast. He recommends CT angiography to evaluate for aneurysm. This is performed this is negative for aneurysm. Patient remained stable while the emergency department. She has a nonfocal neurologic exam. She will be transferred to [facility] for evaluation by both neurology and neurosurgery. (Michi Dennison) Medical Decision Making - Lab Data Result diagrams: 06/22/19 19:07 06/22/19 19:07 <Michi Dennison Suresh - Last Filed: 06/22/19 21:27> - Lab Data Result diagrams: 06/22/19 19:07 06/22/19 19:07 - Radiology Data Radiology results: report reviewed, image reviewed <Natasha Acosta - Last Filed: 06/22/19 21:37> - Medical Decision Making 49-year-old female patient presented to the emergency department today for evaluation after experiencing a fall down approximate 6 stairs. Patient came in with the chief complaints of neck pain and right shoulder pain. Patient is also reporting a significant headache she felt to be related to her neck pain. Physical examination did reveal good neurovascular status. She was neurologically intact with no focal deficits. She did have some tenderness over the C3 to C5 vertebrae. CT brain and C-spine was obtained. C-spine CT was negative however there was a 5-6 mm hyperdense focus in the left frontal lobe concerning for subarachnoid hemorrhage. We did initiate transfer to [facility] however they requested we speak with the neuro interventionalists prior to transfer. Dr. Tobin requested CT angio of the head and neck. Results show no abnormalities so we will proceed with transfer to [facility] for follow up on this suspected bleed. (Natasha Acosta) - Lab Data Lab Results 06/22/19 06/22/19 06/22/19 Range/Units 19:07 19:07 19:07 WBC 9.9 (3.8-10.6) k/uL RBC 4.77 (3.80-5.40) m/uL Hgb 12.9 (11.4-16.0) gm/dL Hct 39.3 (34.0-46.0) % MCV 82.4 (80.0-100.0) fL MCH 27.0 (25.0-35.0) pg MCHC 32.8 (31.0-37.0) g/dL RDW 13.3 (11.5-15.5) % Plt Count 285 (150-450) k/uL Neutrophils % 63 % Lymphocytes % 27 % Monocytes % 4 % Eosinophils % 4 % Basophils % 1 % Neutrophils # 6.3 (1.3-7.7) k/uL Lymphocytes # 2.7 (1.0-4.8) k/uL Monocytes # 0.4 (0-1.0) k/uL Eosinophils # 0.4 (0-0.7) k/uL Basophils # 0.1 (0-0.2) k/uL PT 9.8 (9.0-12.0) sec INR 0.9 (<1.2) APTT 23.7 (22.0-30.0) sec Sodium 136 L (137-145) mmol/L Potassium 3.9 (3.5-5.1) mmol/L Chloride 102 (98-107) mmol/L Carbon Dioxide 26 (22-30) mmol/L Anion Gap 8 mmol/L BUN 19 H (7-17) mg/dL Creatinine 0.72 (0.52-1.04) mg/dL Est GFR (CKD-EPI)AfAm >90 (>60 ml/min/1.73 sqM) Est GFR (CKD-EPI)NonAf >90 (>60 ml/min/1.73 sqM) Glucose 97 (74-99) mg/dL Calcium 8.9 (8.4-10.2) mg/dL Total Bilirubin 0.3 (0.2-1.3) mg/dL AST 19 (14-36) U/L ALT 16 (4-34) U/L Alkaline Phosphatase 61 (38-126) U/L Total Protein 7.1 (6.3-8.2) g/dL Albumin 4.1 (3.5-5.0) g/dL - Radiology Data CT angiography of the head and neck was obtained. Report is reviewed in its entirety. Impression by Dr. Fernando shows no significant stenosis in the common or internal carotid arteries bilaterally. No significant stenosis or aneurysm at the level of the [place] X-ray of the right shoulder was obtained. Report was reviewed in its entirety. Impression by Dr. Duke shows no acute fracture dislocation the right shoulder. CT brain C-spine without contrast was obtained. Report was reviewed in its entirety. Impression by Dr. Duke shows no acute fracture dislocation evident in the cervical spine. Small 5-6 mm hyperdense focus in the left frontal lobe on coronal images this is near the inferior aspect of an anterior left frontal sulcus and a small area of acute hemorrhage or subarachnoid hemorrhage cannot be excluded especially without prior comparison. (Natasha Acosta) Disposition <Michi Dennison - Last Filed: 06/22/19 21:27> - Out of Hospital Transfer - Req. Specs Out of Hospital Transfer - Requested Specifics: Other Emergency Center ([facility]) <Natasha Acosta - Last Filed: 06/22/19 21:37> Clinical Impression: Subarachnoid hemorrhage, Head injury, Cervical strain Disposition: OTHER INSTITUTION NOT DEFINED Condition: Serious Referrals: Ga Barragan MD [Primary Care Provider] - 1-2 days
--- NOTE | 2019-06-22 18:42 | CT ---
EXAMINATION TYPE: CT brain cspine wo con DATE OF EXAM: 06/22/2019 COMPARISON: NONE HISTORY: fall injury with headache and neck pain. CT DLP: 1388.5 mGycm. Automated Exposure Control for Dose Reduction was Utilized. TECHNIQUE: CT scan of the head and cervical spine are performed without contrast. FINDINGS: There is nonspecific subcentimeter left frontal hyperdense focus axial image 27 measuring 5 to 6 mm. No midline shift. Mild ventricular and sulcal prominence is present. The calvarium is in tact. The globes are intact and the visualized sinuses are clear. Cervical spine is visualized in its entirety from C1 through upper thoracic levels and demonstrates s traightened alignment without evidence of acute fracture or dislocation. Prevertebral soft tissue ap pears within normal limits. The C1-C2 articulation is within normal limits on the coronal images. No nspecific sclerotic focus right C2 vertebra coronal image 46. Moderate multilevel disc space narrowin g C3-C4 through the C6-C7 levels with scattered subchondral cysts. Mild to moderate anterior spurring C3-C4 through these levels greatest C3-C4 level. Posterior spur disc complexes effacing anterior the sherita sac at these levels on sagittal and axial images. Axial images reveal uncovertebral facet spurrin g causing bilateral neural foraminal narrowing greatest C3-C4 through the C5-C6 levels. Heterogeneous normal-sized thyroid. Lung apices show no pneumothorax. IMPRESSION: 1. There is no acute fracture or dislocation evident in the cervical spine. 2. Small 5 to 6 mm hyperdense focus left frontal lobe on coronal images this is near inferior aspect of an anterior left frontal sulcus and thus small area of acute hemorrhage or subarachnoid hemorrhage cannot be excluded especially without prior comparison. Consider follow-up short-term CT in 12 to 24 hours if old outside imaging cannot be made available for comparison. Results communicated to ordering emergency care physician title assistant via telephone at time of dictatio n.
[2019-06-22 19:16] LABS: Basophils # (A) 0.1 k/uL (0-0.2); Basophils % (A) 1 %; Eosinophils # (A) 0.4 k/uL (0-0.7); Eosinophils % (A) 4 %; HCT 39.3 % (34.0-46.0); HGB 12.9 gm/dL (11.4-16.0); Lymphocytes # (A) 2.7 k/uL (1.0-4.8); Lymphocytes % (A) 27 %; MCHC 32.8 g/dL (31.0-37.0); MCV 82.4 fL (80.0-100.0); Mean Platelet Volume 7.8; Monocytes # (A) 0.4 k/uL (0-1.0); Monocytes % (A) 4 %; Neutrophils # (A) 6.3 k/uL (1.3-7.7); Neutrophils % (A) 63 %; Platelet Count 285 k/uL (150-450); RBC 4.77 m/uL (3.80-5.40); RDW 13.3 % (11.5-15.5); WBC 9.9 k/uL (3.8-10.6)
[2019-06-22] MEDS ORDERED: LORazepam 2 MG/ML INJ IV STA (19:22)
[2019-06-22] MEDS ORDERED: LABETALOL 5 MG/ML VIAL MDV IVP STA (19:22)
[2019-06-22 19:24] LABS: INR 0.9 (<1.2); Partial Thromboplastin Time 23.7 sec (22.0-30.0); Prothrombin Time 9.8 sec (9.0-12.0)
--- NOTE | 2019-06-22 19:26 | XR ---
EXAMINATION TYPE: XR shoulder complete RT DATE OF EXAM: 06/22/2019 CLINICAL HISTORY: Pain and tingling after fall injury today. TECHNIQUE: Three views of the right shoulder are obtained. COMPARISON: None. FINDINGS: There is no acute fracture/dislocation evident in the right shoulder. The acromioclavicul ar and glenohumeral joint spaces appear within normal limits. The visualized ribs are intact and unr emarkable. Overlying clothing material is present. IMPRESSION: There is no acute fracture or dislocation in the right shoulder.
[2019-06-22 19:34] LABS: ALT 16 U/L (4-34); AST 19 U/L (14-36); African American GFR (CKD) >90 (>60 ml/min/1.73 sqM); Albumin 4.1 g/dL (3.5-5.0); Alkaline Phosphatase 61 U/L (38-126); Anion Gap 8 mmol/L; Blood Urea Nitrogen 19 mg/dL (7-17); Calcium 8.9 mg/dL (8.4-10.2); Carbon Dioxide 26 mmol/L (22-30); Chloride 102 mmol/L (98-107); Glucose 97 mg/dL (74-99); Non-African American GFR(CKD) >90 (>60 ml/min/1.73 sqM); Potassium 3.9 mmol/L (3.5-5.1); Sodium 136 mmol/L (137-145); Total Bilirubin 0.3 mg/dL (0.2-1.3); Total Protein 7.1 g/dL (6.3-8.2)
[2019-06-22 20:51] VITALS: PULSE 73; RESP 16
--- NOTE | 2019-06-22 21:19 | CT ---
EXAMINATION TYPE: CT angio head neck DATE OF EXAM: 06/22/2019 HISTORY: fall injury with neck pain and weakness. COMPARISON: NONE CT DLP: 415.2 mGycm. Automated Exposure Control for Dose Reduction was Utilized. TECHNIQUE: CTA scan of the head and neck are performed with IV Contrast, patient injected with 65cc mL of Isovue 370, axial images are obtained, coronal and sagittal reformatted images are reviewed. Th ree-D reconstructed images are created on an independent workstation and reviewed. FINDINGS: Carotid/Vascular Structures: No significant plaque or stenosis in common or internal carotid arteries bilaterally with particular attention to carotid bulb level. Patent external carotid arteries bilate rally without significant plaque or stenosis. Bovine type aortic arch which is normal variant. There is dominant left vertebral artery. Vertebral arteries are patent to the basilar junction. No si gnificant focal plaque or stenosis in the posterior circulation. Hypoplastic bilateral posterior comm unicating arteries are present. Suspect patent small length anterior communicating artery. No aneurys mal change or significant focal stenosis in the anterior circulation. Other: Reversal of normal cervical curvature with moderate disc space narrowing C3-C4 through the C6- C7 levels. IMPRESSION: No significant stenosis in common or internal carotid arteries bilaterally. No significan t stenosis or aneurysm at the level of [place].
[2019-06-22 22:40] VITALS: BP 146/85
== END 2019-06-22 22:55 | disposition short-term general hospital (02) ==
LOC: EC 17:13
DX: S06.6X0A Traumatic subarachnoid hemorrhage without loss of consciousness, initial encounter (principal); S16.1XXA Strain of muscle, fascia and tendon at neck level, initial encounter; M25.511 Pain in right shoulder; R20.2 Paresthesia of skin; M54.5 Low back pain; Z91.011 Allergy to milk products; Z91.012 Allergy to eggs; Z91.018 Allergy to other foods; Z79.899 Other long term (current) drug therapy; Z86.69 Personal history of other diseases of the nervous system and sense organs; Z98.890 Other specified postprocedural states; W10.9XXA Fall (on) (from) unspecified stairs and steps, initial encounter; Y93.01 Activity, walking, marching and hiking; Y92.009 Unspecified place in unspecified non-institutional (private) residence as the place of occurrence of the external cause; Z53.20 Procedure and treatment not carried out because of patient's decision for unspecified reasons
CPT/HCPCS: 36415; 80053; 85025; 85610; 85730; 73030; 72125; 70496; 70450; 70498; 99285; 96372; J2270; Q9967